=== PATIENT | male | born 1990 | race Caucasian/White ===

== ENCOUNTER 2019-08-24 11:42 | Emergency (ER) | payer OTHER ==
[2019-08-24] MEDS ORDERED: Sodium Chloride 0.9% 10 ML Syringe FLUSH PRN (11:53)
[2019-08-24] MEDS ORDERED: Labetalol 20 MG/4 ML Syringe IVPUSH ONE (12:13)
--- NOTE | 2019-08-24 12:17 | CT ---
[id number] CT/CT Head WO IV EXAM: CT Head WO IV CLINICAL DATA: RIGHT SIDED WEAKNESS. COMPARISON STUDY: None FINDINGS: 10 x 27 x 12 mm acute parenchymal hematoma in the posterior left frontal lobe centered in the white matter. Mild amount of adjacent vasogenic edema. No evidence of midline shift or herniation. In the posterior right frontal lobe there is a 10 mm well-defined rounded area of low density (series 2 image 33). Density is similar to that of CSF. Finding is nonspecific etiology. Chronic lacunar infarction is possible. IMPRESSION: 27 mm acute left frontal lobe parenchymal hematoma centered in the white matter with a mild amount of adjacent vasogenic edema. Other findings are described above. Results relayed to Sam Castro at time of dictation. Reece Garcia MD 08/24/19 [id number] Thank you for allowing us to participate in the care of your patient.
--- NOTE | 2019-08-24 12:23 | EDM.PDOC ---
ED HPI GENERAL MEDICAL PROBLEM - General Stated Complaint: POSS STROKE Time Seen by Provider: 08/24/19 11:42 Source of Information: Reports: Patient, EMS, Family History Limitations: Reports: No Limitations - History of Present Illness INITIAL COMMENTS - FREE TEXT/NARRATIVE: Pt. presents to ER with complaints of R sided upper and lower extremity weakness , R sided facial droop that started at 11AM this AM. Pt. denies any history of trauma. No neck pain. Denies any headache. Denies any chest pain or shortness of breath. Pt. has a history of valvular heart disease with valve replacement-unknown specifically which valve. Pt. had previously been on eliquis but has not been anticoagulated for over a year. Onset: Today Onset Date: 08/24/19 - Related Data Allergies Allergy/AdvReac Type Severity Reaction Status Date / Time No Known Allergies Allergy Verified 08/24/19 11:53 ED ROS GENERAL - Review of Systems Review Of Systems: See Below Constitutional: Reports: No Symptoms HEENT: Reports: No Symptoms Respiratory: Reports: No Symptoms Cardiovascular: Reports: No Symptoms Endocrine: Reports: No Symptoms GI/Abdominal: Reports: No Symptoms : Reports: No Symptoms Musculoskeletal: Reports: No Symptoms Skin: Reports: No Symptoms Neurological: Reports: Other (R sided weakness, dysarthria) Psychiatric: Reports: No Symptoms Hematologic/Lymphatic: Reports: No Symptoms Immunologic: Reports: No Symptoms ED EXAM, GENERAL - Physical Exam Exam: See Below Exam Limited By: No Limitations General Appearance: Alert, WD/WN, No Apparent Distress Eye Exam: Bilateral Eye: EOMI, Normal Fundi, Normal Inspection, PERRL Nose: Normal Inspection, Normal Mucosa, No Blood Throat/Mouth: Normal Inspection, Normal Lips, Normal Teeth, Normal Gums, Normal Oropharynx, Normal Voice, No Airway Compromise Head: Atraumatic, Normocephalic Neck: Normal Inspection, Supple, Non-Tender, Full Range of Motion Respiratory/Chest: No Respiratory Distress, Lungs Clear, Normal Breath Sounds, No Accessory Muscle Use, Chest Non-Tender Cardiovascular: Normal Peripheral Pulses, Regular Rate, Rhythm, No Edema, No Gallop, No JVD, No Murmur Peripheral Pulses: 4+: Radial (L) GI/Abdominal: Normal Bowel Sounds, Soft, Non-Tender, No Organomegaly, No Distention, No Abnormal Bruit, No Mass, Pelvis Stable (Male) Exam: Deferred Rectal (Males) Exam: Deferred Back Exam: Normal Inspection, Full Range of Motion Extremities: Normal Inspection, Normal Range of Motion, Non-Tender, No Pedal Edema, Normal Capillary Refill Neurological: Alert, Oriented, Normal Cognition, Other (R sided upper and lower extremity weakness/drift, R sided facial droop. Mild dysarthria) Psychiatric: Normal Affect Skin Exam: Warm, Dry, Intact, Normal Color, No Rash Lymphatic: No Adenopathy EKG INTERPRETATION Rhythm: NSR [place]: Normal P-Wave: Present QRS: Normal ST-T: Normal QT: Normal Course - Orders/Labs/Meds Orders: Active Orders 24 hr Category Date Time Status EKG Documentation Completion [RC] STAT Care 08/24/19 11:53 Active COMPREHENSIVE METABOLIC PN,CMP [CHEM] Stat Lab 08/24/19 12:02 Received MAGNESIUM [CHEM] Stat Lab 08/24/19 12:02 Received TSH ULTRASENSITIVE [CHEM] Stat Lab 08/24/19 12:02 Received Sodium Chloride 0.9% [Saline Flush] Med 08/24/19 11:53 Active 10 ml FLUSH ASDIRECTED PRN Peripheral IV Insertion Adult [OM.PC] Routine Oth 08/24/19 11:54 Ordered Medication Orders Sodium Chloride (Saline Flush) 10 ml FLUSH ASDIRECTED PRN PRN Reason: Keep Vein Open Labs: Laboratory Tests 08/24/19 08/24/19 08/24/19 Range/Units 11:52 12:02 12:02 WBC 4.8 (4.0-10.0) x10^3/uL RBC 5.22 (4.5-6.0) x10^6/uL Hgb 15.0 (14.0-18.0) g/dL Hct 44.1 (40.0-52.0) % MCV 84.5 (78.0-93.0) fL MCH 28.7 (26.0-32.0) pg MCHC 34.0 (32.0-36.0) g/dL RDW Coeff of [place] 13.1 (10.0-15.0) % Plt Count 166 (130-400) x10^3/uL Neut % (Auto) 52.2 (50.0-80.0) % Lymph % (Auto) 36.8 (25.0-50.0) % [place] % (Auto) 8.9 (2.0-11.0) % Eos % (Auto) 1.7 (0.0-4.0) % Baso % (Auto) 0.4 (0.2-1.2) % PT 11.6 (10.0-12.8) SEC INR 1.0 L (2.0-3.5) POC Glucose 93 (74-106) mg/dL POC Troponin I (0.00-0.08) ng/mL 08/24/19 Range/Units 12:05 WBC (4.0-10.0) x10^3/uL RBC (4.5-6.0) x10^6/uL Hgb (14.0-18.0) g/dL Hct (40.0-52.0) % MCV (78.0-93.0) fL MCH (26.0-32.0) pg MCHC (32.0-36.0) g/dL RDW Coeff of [place] (10.0-15.0) % Plt Count (130-400) x10^3/uL Neut % (Auto) (50.0-80.0) % Lymph % (Auto) (25.0-50.0) % [place] % (Auto) (2.0-11.0) % Eos % (Auto) (0.0-4.0) % Baso % (Auto) (0.2-1.2) % PT (10.0-12.8) SEC INR (2.0-3.5) POC Glucose (74-106) mg/dL POC Troponin I 0.04 (0.00-0.08) ng/mL Meds: Medications Generic Name Dose Route Start Last Admin Trade Name Freq PRN Reason Stop Dose Admin Sodium Chloride 10 ml 08/24/19 11:53 Saline Flush FLUSH ASDIRECTED PRN Keep Vein Open Discontinued Medications Generic Name Dose Route Start Last Admin Trade Name Freq PRN Reason Stop Dose Admin Labetalol HCl 20 mg 08/24/19 12:13 Normodyne IVPUSH 08/24/19 12:14 NOW ONE Protocol - Re-Assessments/Exams Free Text/Narrative Re-Assessment/Exam: 27 mm acute L frontal lobe hematoma with adjacent vasogenic edema Departure - Departure Time of Disposition: 12:32 Disposition: DC/Tfer to Acute Hospital 02 Clinical Impression: Intracranial hematoma - Discharge Information Referrals: Bailey Rivas, [employer] [Primary Care Provider] - Forms: Interfacility Transfer EMTALA Sepsis Event Note - Focused Exam Date Exam was Performed: 08/24/19 Time Exam was Performed: 12:28 - My Orders Last 24 Hours: My Active Orders 08/24/19 11:53 EKG Documentation Completion [RC] STAT Sodium Chloride 0.9% [Saline Flush] 10 ml FLUSH ASDIRECTED PRN 08/24/19 11:54 Peripheral IV Insertion Adult [OM.PC] Routine 08/24/19 12:02 COMPREHENSIVE METABOLIC PN,CMP [CHEM] Stat MAGNESIUM [CHEM] Stat TSH ULTRASENSITIVE [CHEM] Stat - Assessment/Plan Last 24 Hours: My Active Orders 08/24/19 11:53 EKG Documentation Completion [RC] STAT Sodium Chloride 0.9% [Saline Flush] 10 ml FLUSH ASDIRECTED PRN 08/24/19 11:54 Peripheral IV Insertion Adult [OM.PC] Routine 08/24/19 12:02 COMPREHENSIVE METABOLIC PN,CMP [CHEM] Stat MAGNESIUM [CHEM] Stat TSH ULTRASENSITIVE [CHEM] Stat Plan: Pt. will be transported to [facility] in [place]. Dr. Stoddard accepts the patient in transfer. Discussed findings with patient. Pt. was given 20mg of labetolol IV. He will be transported via [facility] ground ambulance.
[2019-08-24 12:38] LABS: CHLORIDE,CL 106 mmol/L (98-107); SODIUM,NA 146 mmol/L (136-145)
== END 2019-08-24 12:20 | disposition short-term general hospital (02) ==
LOC: VM.ED 11:42
DX: I61.1 Nontraumatic intracerebral hemorrhage in hemisphere, cortical (principal); R40.2412 Glasgow coma scale score 13-15, at arrival to emergency department; Z95.2 Presence of prosthetic heart valve
CPT/HCPCS: 36415; 70450; 80053; 82962; 83735; 84443; 84484; 85025; 85610; 93005; 96374; 99285-25; J3490

== ENCOUNTER 2020-07-23 21:03 | Emergency (ER) | payer OTHER ==
--- NOTE | 2020-07-23 21:06 | EDM.PDOC ---
<Gabo Devlin - Last Filed: 07/23/20 21:54> ED HPI GENERAL MEDICAL PROBLEM - General Chief Complaint: Chest Pain Stated Complaint: chest tightness Time Seen by Provider: 07/23/20 21:05 Source of Information: Reports: Patient History Limitations: Reports: No Limitations - History of Present Illness INITIAL COMMENTS - FREE TEXT/NARRATIVE: Patient comes emergency department today with complaints of anterior chest pain. This patient had the development of pulling tightness sensation in his anterior chest midsternally at about 5 tonight. This patient was laying on the ground on his side watching TV and when he went to get up he suddenly developed this tightness pulling sensation in his anterior mid sternum. He then started to become quite anxious and then felt some heaviness on his chest. He had no shortness of breath. No weakness dizziness lightheadedness. No syncope. The pain did not radiate anywhere. He was not diaphoretic. He was not nauseated. He has no abdominal pain nausea or vomiting. His pain is actually gotten quite a bit better since he has calm down and is almost resolved. 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 He did have Covid in the past but he is cleared on his quarantine. Right Chest Pain Score (Numeric/FACES): 5 - Related Data Allergies Allergy/AdvReac Type Severity Reaction Status Date / Time No Known Allergies Allergy Verified 07/23/20 21:13 Home Meds: Home Meds Aspirin 81 mg PO DAILY 07/23/20 [History] atenoloL [Atenolol] 25 mg PO DAILY 07/23/20 [History] ED ROS GENERAL - Review of Systems Review Of Systems: Comprehensive ROS is negative, except as noted in HPI. ED EXAM, GENERAL - Physical Exam Exam: See Below Exam Limited By: No Limitations General Appearance: Alert, WD/WN, Anxious Eye Exam: Bilateral Eye: EOMI, PERRL Ears: Normal External Exam Nose: Normal Inspection Throat/Mouth: Normal Inspection, Normal Oropharynx Head: Atraumatic, Normocephalic Neck: Normal Inspection, Supple, Non-Tender Respiratory/Chest: No Respiratory Distress, Lungs Clear, Normal Breath Sounds, No Accessory Muscle Use, Chest Non-Tender Cardiovascular: Normal Peripheral Pulses, Regular Rate, Rhythm, Systolic Murmur (He has agreed 45 systolic murmur heard over the right precordium as well as throughout his chest. He has no tenderness to his chest on palpation.) GI/Abdominal: Normal Bowel Sounds, Soft, Non-Tender, No Abnormal Bruit (Male) Exam: Deferred Rectal (Males) Exam: Deferred Back Exam: Normal Inspection, Full Range of Motion Extremities: Normal Inspection, Normal Range of Motion, No Pedal Edema, Normal Capillary Refill Neurological: Alert, Oriented, Normal Cognition, Normal Gait, No Motor/Sensory Deficits Psychiatric: Normal Affect, Normal Mood Skin Exam: Warm, Dry, Intact, Normal Color, No Rash Lymphatic: No Adenopathy #1 Interpretation EKG Date: 07/23/20 Time: 21:10 Rhythm: NSR Rate (Beats/Min): 79 [place]: Normal P-Wave: Present QRS: Normal ST-T: Other (Nonspecific T wave abnormalities anterolateral leads.) QT: Normal Comparison: Change From Previous EKG (With the Nonspecific T wave changes.) Course - Radiology Interpretation Free Text/Narrative:: X-ray per radiology shows borderline cardiomegaly. Otherwise unremarkable per radiology. - Re-Assessments/Exams Free Text/Narrative Re-Assessment/Exam: 07/23/20 21:44 EKG does have some T wave abnormalities which is changed from previously. Shortly after arrival the patient's pain is resolved on its own. Norflex 60mg IM although the patient refused. Aspirin 325mg PO. Laboratory evaluation completed shows a troponin is 0.02. Although his pains has only been going on for the past half an hour. With his history of known cardiac disease and his history of a stroke I think that it is best to repeat his troponin at the 4-hour level. He has had a recent stroke as well to. So he does have risk for cardiac disease although this is really a muskuloskelatal presentation. I discussed my concerns with the patient. He is understanding of this and agrees to the repeat labs Care of this patient at [address] [facility] at the time of shift change. 07/23/20 21:55 Departure - Departure Disposition: Home, Self-Care 01 Clinical Impression: Chest pain Qualifiers: Chest pain type: other chest pain Qualified Code(s): R07.89 - Other chest pain; R07.8 - Other chest pain Instructions: Nonspecific Chest Pain, Adult, [id number] Referrals: PCP,None [Primary Care Provider] - Forms: ED Department Discharge Additional Instructions: 1. rest 2. increase your water intake 3. Continue all at home medications 4. Activity and diet as tolerated 5. Can take over the counter Tylenol for any pain or discomfort 6. Follow up with PCP if symptoms continue, return, or progress 7. Call with any questions or concerns <Christian Nicolelle - Last Filed: 07/24/20 00:57> ED EXAM, GENERAL - Physical Exam Exam: See Below Exam Limited By: No Limitations General Appearance: Alert, WD/WN, No Apparent Distress Eye Exam: Bilateral Eye: EOMI, PERRL Nose: Normal Inspection Throat/Mouth: Normal Inspection, Normal Lips, Normal Oropharynx, No Airway Compromise Head: Atraumatic, Normocephalic Neck: Normal Inspection, Supple, Non-Tender Respiratory/Chest: No Respiratory Distress, Lungs Clear, Normal Breath Sounds, No Accessory Muscle Use, Chest Non-Tender Cardiovascular: Normal Peripheral Pulses, Regular Rate, Rhythm, No Edema, Systolic Murmur GI/Abdominal: Normal Bowel Sounds, Soft, Non-Tender, No Distention (Male) Exam: Deferred Rectal (Males) Exam: Deferred Extremities: Normal Inspection, Normal Range of Motion, Non-Tender, No Pedal [place], Normal Capillary Refill Neurological: Alert, Oriented, Normal Cognition, Normal Gait Psychiatric: Normal Affect, Normal Mood Skin Exam: Warm, Dry, Intact, Normal Color Course - Vital Signs Last Recorded V/S: Last Vital Signs Temp 37.5 C 07/23/20 21:14 Pulse 75 07/24/20 00:53 Resp 16 07/24/20 00:53 BP 98/44 L 07/24/20 00:53 Pulse Ox 97 07/24/20 00:53 - Orders/Labs/Meds Orders: Active Orders 24 hr Category Date Time Status EKG Documentation Completion [RC] STAT Care 07/23/20 21:05 Active Chest 2V [CR] Urgent Exams 07/23/20 21:05 Taken Labs: Laboratory Tests 07/23/20 07/23/20 07/23/20 Range/Units 21:15 21:15 21:15 WBC 6.8 (4.0-10.0) x10^3/uL RBC 4.91 (4.5-6.0) x10^6/uL Hgb 13.7 L (14.0-18.0) g/dL Hct 42.1 (40.0-52.0) % MCV 85.7 (78.0-93.0) fL MCH 27.9 (26.0-32.0) pg MCHC 32.5 (32.0-36.0) g/dL RDW Coeff of [place] 12.6 (10.0-15.0) % Plt Count 194 (130-400) x10^3/uL Neut % (Auto) 45.7 L (50.0-80.0) % Lymph % (Auto) 44.1 (25.0-50.0) % [place] % (Auto) 6.8 (2.0-11.0) % Eos % (Auto) 3.0 (0.0-4.0) % Baso % (Auto) 0.4 (0.2-1.2) % Sodium 142 (136-145) mmol/L Potassium 3.6 (3.5-5.1) mmol/L Chloride 105 (98-107) mmol/L Carbon Dioxide 29 (21-32) mmol/L Anion Gap 11.6 (10-20) mmol/L BUN 20 H (7-18) mg/dL Creatinine 1.1 (0.70-1.30) mg/dL Est Cr Clr Drug Dosing TNP Estimated GFR (MDRD) > 60 Glucose 120 H (74-106) mg/dL Calcium 8.2 L (8.5-10.1) mg/dL Corrected Calcium 8.12 L (8.5-10.1) mg/dL Total Bilirubin 0.3 (0.2-1.0) mg/dL AST 33 (15-37) U/L ALT 47 (16-63) U/L Alkaline Phosphatase 53 (46-116) U/L POC Troponin I 0.02 (0.00-0.08) ng/mL Total Protein 7.2 (6.4-8.2) g/dL Albumin 4.1 (3.4-5.0) g/dL Globulin 3.1 Albumin/Globulin Ratio 1.32 11/20/20 Range/Units 00:40 WBC (4.0-10.0) x10^3/uL RBC (4.5-6.0) x10^6/uL Hgb (14.0-18.0) g/dL Hct (40.0-52.0) % MCV (78.0-93.0) fL MCH (26.0-32.0) pg MCHC (32.0-36.0) g/dL RDW Coeff of [place] (10.0-15.0) % Plt Count (130-400) x10^3/uL Neut % (Auto) (50.0-80.0) % Lymph % (Auto) (25.0-50.0) % [place] % (Auto) (2.0-11.0) % Eos % (Auto) (0.0-4.0) % Baso % (Auto) (0.2-1.2) % Sodium (136-145) mmol/L Potassium (3.5-5.1) mmol/L Chloride (98-107) mmol/L Carbon Dioxide (21-32) mmol/L Anion Gap (10-20) mmol/L BUN (7-18) mg/dL Creatinine (0.70-1.30) mg/dL Est Cr Clr Drug Dosing Estimated GFR (MDRD) Glucose (74-106) mg/dL Calcium (8.5-10.1) mg/dL Corrected Calcium (8.5-10.1) mg/dL Total Bilirubin (0.2-1.0) mg/dL AST (15-37) U/L ALT (16-63) U/L Alkaline Phosphatase (46-116) U/L POC Troponin I 0.01 (0.00-0.08) ng/mL Total Protein (6.4-8.2) g/dL Albumin (3.4-5.0) g/dL Globulin Albumin/Globulin Ratio Meds: Medications Discontinued Medications Generic Name Dose Route Start Last Admin Trade Name Freq PRN Reason Stop Dose Admin Aspirin 324 mg 07/23/20 21:44 07/23/20 22:00 Aspirin PO 07/23/20 21:45 324 mg ONETIME ONE Administration Orphenadrine Citrate 60 mg 07/23/20 21:22 07/23/20 22:55 Norflex IM 07/23/20 21:23 Not Given NOW STA - Re-Assessments/Exams Free Text/Narrative Re-Assessment/Exam: 07/24/20 00:44 pt remains pain free. AxOx3. VSS. resting in the room- no complaints. No ectopy noted on monitor tech during ER evaluation. Free Text/Narrative Re-Assessment/Exam: 07/24/20 00:55 Patient continues to remain asymptomatic and has had no further chest discomfort or pain while in the emergency department. Patient states that the pain had always been reproducible especially with movement.. Patient on multiple o ccurrences for hospitalization observation and trending his cardiac enzymes however patient is unwilling. Patient was willing to stay and have his labs drawn 4 hours later. With no significant increase or change in his number patient would like to be discharged. Patient understands the risk including and up to if he is discharged. He states that he will contact 911 or return to the emergency department immediately if any chest pain or discomfort arises. Departure - Departure Time of Disposition: 00:55 Condition: Good Sepsis Event Note (ED) - Focused Exam Vital Signs: Vital Signs Temp Pulse Resp BP Pulse Ox 07/24/20 00:53 75 16 98/44 L 97 07/24/20 00:35 57 L 15 102/49 L 99 07/24/20 00:20 55 L 12 96/46 L 98 07/24/20 00:01 56 L 15 106/51 L 97 07/23/20 23:46 58 L 97/47 L 07/23/20 23:31 61 93/43 L 07/23/20 23:16 63 105/54 L 07/23/20 23:01 64 102/52 L 07/23/20 22:46 61 101/42 L 07/23/20 22:31 66 97/46 L 97 07/23/20 22:16 67 105/55 L 96 07/23/20 22:00 73 15 112/45 L 97 07/23/20 21:46 69 112/49 L 96 07/23/20 21:31 69 122/48 L 96 07/23/20 21:14 37.5 C 75 18 130/64 100 - Assessment/Plan Assessment:: 1. chest pain Plan: 1. Patient currently is unwilling to be admitted at this point. Is willing to stay and have his Cardiac labs redrawn at 1am. Pt is resting comfortably, AxOx3, VSS, no pain.
[2020-07-23] MEDS ORDERED: Orphenadrine 60 MG/2 ML Inj IM STA (21:22)
[2020-07-23 21:40] LABS: ANION GAP 11.6 mmol/L (10-20); CHLORIDE,CL 105 mmol/L (98-107); SODIUM,NA 142 mmol/L (136-145)
[2020-07-23] MEDS ORDERED: Aspirin 81 MG Tab.Chew PO ONE (21:44)
--- NOTE | 2020-07-24 07:34 | CR ---
[id number] RAD/RAD Chest PA And Lateral EXAM: FRONTAL AND LATERAL CHEST INDICATION: Chest pain. COMPARISON: None. DISCUSSION: There is mild cardiomegaly with borderline central vascular congestion. No definite infiltrates. Prior sternotomy. No effusions. IMPRESSION: 1. Cardiomegaly with borderline central vascular congestion. Issac Walker MD 07/24/20 0733 Thank you for allowing us to participate in the care of your patient.
== END 2020-07-24 01:04 | disposition home or self-care (01) ==
LOC: VM.ED 21:03
DX: R07.89 Other chest pain (principal); Z79.82 Long term (current) use of aspirin
CPT/HCPCS: 36415; 71046; 80053; 84484; 85025; 93005; 93010; 99284; 99285; A9270